=== PATIENT | female | born 1960 | race Hispanic/Latino ===

== ENCOUNTER 2021-08-27 11:15 | Inpatient (IN) | payer OTHER, SELFPAY ==
[~2021-08-27 11:15] MED LIST: ISOVUE-370 76%-LOCM 1 ML ONE
[2021-08-27 11:39] LABS: #Eosinphils 0.2 thou/uL (0.0-0.7); #Lymphocytes 1.4 thou/uL (1.20-3.40); #Monocytes 0.5 thou/uL (0.11-0.59); #Neutrophils 3.4 thou/uL (1.40-6.50); %Basophils 0.1 % (0.0-1.0); %Eosinophils 3.4 % (0.0-10.0); %Monocytes 9.6 % (0.0-10.0); Hemoglobin 13.8 g/dL (12.0-16.0); Mean Corpuscular HGB CONC 31.7 g/dL (32.0-36.0); Mean Corpuscular Hemoglobin 30.2 pg (27.0-31.0); Mean Corpuscular Volume 95.4 fL (78.0-98.0); Mean Platelet Volume 7.5 fL (7.4-10.4); Platelet Count 211 thou/uL (130-400); RBC Distribution Width 12.7 % (11.5-14.5); Red Blood Cell (RBC) Count 4.56 mill/uL (4.20-5.40); White Blood Cell (WBC) Count 5.5 thou/uL (4.8-10.8)
[2021-08-27 11:52] LABS: PTT 37.9 sec (22.9-36.1); Prothrombin Time 13.7 sec (12.0-14.7)
[2021-08-27 11:59] LABS: ALT (SGPT) 118 U/L (8-55); AST (SGOT) 91 U/L (5-34); Albumin 4.2 g/dL (3.4-4.8); Alkaline Phosphatase 115 U/L (40-110); Anion Gap 15 mmol/L (10-20); BUN (Urea Nitrogen) 17 mg/dL (9.8-20.1); Bilirubin, Total 0.5 mg/dL (0.2-1.2); CK (CPK) 66 U/L (29-168); Calc. Creatinine Clearance 0 mL/min (70-130); Calcium 9.5 mg/dL (7.8-10.44); Carbon Dioxide 23 mmol/L (23-31); Chloride 107 mmol/L (98-107); Globulin 3.8 g/dL (2.4-3.5); Glucose 163 mg/dL (80-115); Potassium 3.7 mmol/L (3.5-5.1); Sodium 141 mmol/L (136-145)
[2021-08-27] MEDS ORDERED: Diltiazem 125 MG/25 ML ONE (12:28)
[2021-08-27] MEDS ORDERED: Aspirin 325 MG TAB ONE (13:01)
[2021-08-27] MEDS ORDERED: Heparin 10,000 UNITS/ 10 ML VIAL SLOW IVP SCH (16:00)
[2021-08-27] MEDS ORDERED: Heparin 25,000 units/D5W 500 ML IVPB SCH (16:00)
[2021-08-27 16:29] LABS: Hemoglobin 13.5 g/dL (12.0-16.0); Platelet Count 239 thou/uL (130-400)
[2021-08-27] MEDS ORDERED: Acetaminophen 325 MG TAB PO PRN (17:08)
[2021-08-27] MEDS ORDERED: Acetaminophen 650 MG Suppository PR PRN (17:08)
[2021-08-27] MEDS ORDERED: Ondansetron PF 4 MG/2 ML Vial IVP PRN (17:08)
[2021-08-27] MEDS ORDERED: Ondansetron ODT 4 MG TAB PO PRN (17:08)
[2021-08-27] MEDS ORDERED: Labetalol HCl 100 MG/20 ML VIAL SLOW IVP PRN (17:08)
[2021-08-27] MEDS ORDERED: Heparin 25,000 units/D5W 500 ML IV SCH (19:00)
[2021-08-27] MEDS: Atorvastatin Calcium 40 MG TAB PO SCH (20:05)
[2021-08-27] MEDS: Metoprolol Tartrate 50 MG TAB PO SCH (20:05)
[2021-08-28 07:37] LABS: Hemoglobin 15.3 g/dL (12.0-16.0); Mean Corpuscular HGB CONC 32.3 g/dL (32.0-36.0); Mean Platelet Volume 8.5 fL (7.4-10.4); Platelet Count 192 thou/uL (130-400); RBC Distribution Width 12.9 % (11.5-14.5); Red Blood Cell (RBC) Count 4.92 mill/uL (4.20-5.40); White Blood Cell (WBC) Count 5.6 thou/uL (4.8-10.8)
[2021-08-28] MEDS: Metoprolol Tartrate 50 MG TAB PO SCH ×2 (07:53→21:54)
[2021-08-28] MEDS: Aspirin 81 mg Enteric Coated Tablet PO SCH (07:53)
[2021-08-28 07:59] LABS: Band 15 % (5-11); Lymphocytes 20 % (21-51); MDiff Complete? YES; Monocytes 5 % (0-10); Neutrophil 60 % (42-75); Platelet Morphology Comment Appears Adequate; RBC Morphology Normal
[2021-08-28 09:36] LABS: Anion Gap 15 mmol/L (10-20); BUN (Urea Nitrogen) 12 mg/dL (9.8-20.1); Calc. Creatinine Clearance 101 mL/min (70-130); Calcium 9.7 mg/dL (7.8-10.44); Carbon Dioxide 21 mmol/L (23-31); Cardiac Risk 3.8 (Less than 4.5); Chloride 105 mmol/L (98-107); Cholesterol 207 mg/dl (< 200 Desired); Glucose 107 mg/dL (80-115); HDL Cholesterol 54 mg/dL (>60 Neg Risk); LDL Cholesterol, Calculated 132 mg/dL; Potassium 3.4 mmol/L (3.5-5.1); Sodium 138 mmol/L (136-145); Triglycerides 105 mg/dL (Less than 150)
[2021-08-28 13:51] VITALS: BMI 29.3
[2021-08-28 14:14] LABS: Prothrombin Time 13.7 sec (12.0-14.7)
[2021-08-28 16:42] LABS: Prothrombin Time 13.1 sec (12.0-14.7)
[2021-08-28 18:13] LABS: PTT 42.9 sec (22.9-36.1)
[2021-08-28] MEDS: Atorvastatin Calcium 40 MG TAB PO SCH (21:54)
[2021-08-28 22:06] LABS: Prothrombin Time 13.6 sec (12.0-14.7)
[2021-08-28 22:07] LABS: PTT 102.4 sec (22.9-36.1)
[2021-08-28] MEDS ORDERED: Metoprolol Tartrate 25 MG TAB PO SCH (23:30)
[2021-08-29 04:25] LABS: #Eosinphils 0.2 thou/uL (0.0-0.7); #Lymphocytes 1.1 thou/uL (1.20-3.40); #Monocytes 0.5 thou/uL (0.11-0.59); #Neutrophils 2.8 thou/uL (1.40-6.50); %Basophils 0.8 % (0.0-1.0); %Eosinophils 4.5 % (0.0-10.0); %Lymphocytes 23.4 % (21.0-51.0); %Monocytes 11.3 % (0.0-10.0); %Neutrophils 60.1 % (42.0-75.0); Hemoglobin 14.4 g/dL (12.0-16.0); Mean Corpuscular HGB CONC 32.6 g/dL (32.0-36.0); Mean Corpuscular Hemoglobin 30.9 pg (27.0-31.0); Mean Corpuscular Volume 94.6 fL (78.0-98.0); Mean Platelet Volume 7.7 fL (7.4-10.4); Platelet Count 236 thou/uL (130-400); Red Blood Cell (RBC) Count 4.66 mill/uL (4.20-5.40); White Blood Cell (WBC) Count 4.7 thou/uL (4.8-10.8)
[2021-08-29 04:32] LABS: Prothrombin Time 13.7 sec (12.0-14.7)
[2021-08-29 04:33] LABS: PTT 64.1 sec (22.9-36.1)
[2021-08-29 04:53] LABS: Anion Gap 15 mmol/L (10-20); BUN (Urea Nitrogen) 17 mg/dL (9.8-20.1); Calc. Creatinine Clearance 78 mL/min (70-130); Calcium 9.5 mg/dL (7.8-10.44); Carbon Dioxide 23 mmol/L (23-31); Chloride 104 mmol/L (98-107); Glucose 115 mg/dL (80-115); Potassium 3.7 mmol/L (3.5-5.1); Sodium 138 mmol/L (136-145)
[2021-08-29] MEDS: Aspirin 81 mg Enteric Coated Tablet PO SCH (09:11)
[2021-08-29] MEDS: Metoprolol Tartrate 50 MG TAB PO SCH ×2 (09:11→20:13)
[2021-08-29 10:13] LABS: INR-International Normal Ratio 1.1; PTT 42.3 sec (22.9-36.1); Prothrombin Time 13.9 sec (12.0-14.7)
[2021-08-29 15:17] LABS: Hemoglobin A1c 6.7 % (4.0-6.0)
[2021-08-29 16:31] LABS: Hemoglobin 14.5 g/dL (12.0-16.0); Platelet Count 226 thou/uL (130-400)
[2021-08-29] MEDS: Atorvastatin Calcium 40 MG TAB PO SCH (20:13)
[2021-08-30 05:24] LABS: #Eosinphils 0.2 thou/uL (0.0-0.7); #Lymphocytes 0.9 thou/uL (1.20-3.40); #Monocytes 0.4 thou/uL (0.11-0.59); #Neutrophils 2.2 thou/uL (1.40-6.50); %Basophils 0.3 % (0.0-1.0); %Eosinophils 4.6 % (0.0-10.0); %Lymphocytes 24.8 % (21.0-51.0); %Monocytes 11.6 % (0.0-10.0); %Neutrophils 58.6 % (42.0-75.0); Hemoglobin 14.1 g/dL (12.0-16.0); Mean Corpuscular HGB CONC 32.4 g/dL (32.0-36.0); Mean Corpuscular Hemoglobin 30.8 pg (27.0-31.0); Mean Corpuscular Volume 95.2 fL (78.0-98.0); Mean Platelet Volume 7.7 fL (7.4-10.4); Platelet Count 219 thou/uL (130-400); RBC Distribution Width 12.9 % (11.5-14.5); Red Blood Cell (RBC) Count 4.57 mill/uL (4.20-5.40); White Blood Cell (WBC) Count 3.7 thou/uL (4.8-10.8)
[2021-08-30 05:46] LABS: Anion Gap 13 mmol/L (10-20); BUN (Urea Nitrogen) 20 mg/dL (9.8-20.1); Calc. Creatinine Clearance 89 mL/min (70-130); Calcium 9.3 mg/dL (7.8-10.44); Carbon Dioxide 24 mmol/L (23-31); Chloride 105 mmol/L (98-107); Glucose 112 mg/dL (80-115); Potassium 3.2 mmol/L (3.5-5.1); Sodium 139 mmol/L (136-145)
[2021-08-30] MEDS ORDERED: Potassium Chloride 20 MEQ TAB PO SCH (07:30)
[2021-08-30] MEDS: Metoprolol Tartrate 50 MG TAB PO SCH (09:02)
[2021-08-30] MEDS: Aspirin 81 mg Enteric Coated Tablet PO SCH (09:04)
[2021-08-30 09:14] LABS: Prothrombin Time 13.1 sec (12.0-14.7)
[2021-08-30 09:15] LABS: PTT 45.9 sec (22.9-36.1)
[2021-08-30] MEDS ORDERED: Apixaban 5 MG TAB PO SCH (10:15)
[2021-08-30 11:58] VITALS: TEMP 98.9
[2021-08-30 13:17] VITALS: BP 147/97
== END 2021-08-30 17:30 | disposition home or self-care (01) | DRG 65 ==
LOC: ERS 11:15 → NEURO 14:14 → IMCU/EMU 18:51 → NEURO 08-28 20:04
PROVIDERS: ADMIT Internal Medicine; ATTEND Internal Medicine
DX: I63.311 Cerebral infarction due to thrombosis of right middle cerebral artery (principal); G81.94 Hemiplegia, unspecified affecting left nondominant side; Z20.822 Contact with and (suspected) exposure to COVID-19; I10 Essential (primary) hypertension; I48.91 Unspecified atrial fibrillation; R29.810 Facial weakness; R29.703 NIHSS score 3; Z79.899 Other long term (current) drug therapy; Z87.891 Personal history of nicotine dependence
CPT/HCPCS: 36415; 36416; 70450; 70496; 70498; 70551; 71045; 80048; 80053; 80061; 82550; 83036; 83605; 84443; 84484; 85014; 85018; 85025; 85049; 85610; 85730; 93005; 93306; 96374; J1644; Q9966; U0003; U0005

== ENCOUNTER 2021-10-18 08:44 | Outpatient (CLI) | payer OTHER ==
[2021-10-18] MEDS ORDERED: Regadenoson 0.4 MG/5 ML SYRINGE ONE (09:00)
== END 2021-10-18 08:45 | disposition home or self-care (01) ==
LOC: NM 08:44
PROVIDERS: ATTEND Internal Medicine Cardiovascular Disease
DX: R07.9 Chest pain, unspecified (principal)
CPT/HCPCS: 78452; 93017; A9500; J2785